=== PATIENT | female | born 1965 | race Caucasian/White ===

== ENCOUNTER 2018-04-13 16:27 | Emergency (ER) | payer MEDICAID ==
[~2018-04-13] VITALS: Ht 154.9 cm; Wt 67.1 kg
--- NOTE | 2018-04-13 16:27 | NUR ---
BROUGHT BACK TO BED #2 AND TRIAGED. REPORT GIVEN TO NEDA
[2018-04-13 16:30] VITALS: BP_SYST 151
--- NOTE | 2018-04-13 16:32 | NUR ---
Pt AAOx4 ambulated into ED c/o SOB/dizziness/headache and chest tightness prior to arrival. Pt reports having increased amount of stress recently. No other injuries/complaints per pt/noted. Will continue to monitor.
--- NOTE | 2018-04-13 16:45 | NUR ---
ER Dr. Geller at bedside examining patient.
[2018-04-13] MEDS ORDERED: LORazepam 2 MG/ML VIAL (FOR ER USE) IVP ONE (17:00)
[2018-04-13] MEDS ORDERED: NITROGLYCERIN 1 INCH (GM) OINT. TP ONE (17:00)
[2018-04-13] MEDS ORDERED: ASPIRIN 81 MG TAB.CHEW PO ONE (17:00)
--- NOTE | 2018-04-13 17:00 | NUR ---
Aspirin, Nitroglycerin TP, Pt refused Ativan. Dr. Geller notified
[2018-04-13 17:11] LABS: BILIRUBIN,URINE NEGATIVE (NEGATIVE); BLOOD, URINE 1+ (NEGATIVE); CLARITY/URINE SL CLOUDY (CLEAR); COLOR,URINE YELLOW (YELLOW); GLUCOSE,URINE NEGATIVE (NEGATIVE); KETONES,URINE NEGATIVE (NEGATIVE); LEUKOCYTE ESTERASE ,URINE NEGATIVE (NEGATIVE); NITRITE, URINE NEGATIVE (NEGATIVE); PROTEIN URINE NEGATIVE (NEGATIVE); UROBILINOGEN,URINE 0.2 (0.2-1.0)
--- NOTE | 2018-04-13 17:16 | NUR ---
Radiology at bedside
[2018-04-13 17:20] LABS: BASOPHILS % (AUTO) 0.4 % (0.0-2.0); EOSINOPHILS # (AUTO) 0.1 K/uL (0.0-0.4); EOSINOPHILS % (AUTO) 0.8 % (0.0-4.0); HEMATOCRIT 40.3 % (36-48); HEMOGLOBIN 14.1 g/dL (12.0-16.0); LYMPHOCYTES # (AUTO) 2.5 K/uL (1.0-5.5); LYMPHOCYTES % (AUTO) 25.6 % (20.5-51.5); MEAN CORPUSCULAR HEMOGLOBIN 30 pg (27-31); MEAN CORPUSCULAR HGB CONC 35 % (32-36); MEAN CORPUSCULAR VOLUME 87 fL (79.0-98.0); MONOCYTES # (AUTO) 0.7 K/uL (0.0-1.0); MONOCYTES % (AUTO) 7.4 % (1.7-9.3); NEUTROPHILS # (AUTO) 6.4 K/uL (1.8-7.7); NEUTROPHILS % (AUTO) 65.8 % (40.0-70.0); PLATELET COUNT (AUTO) 312 K/uL (130-430); RED BLOOD CELL COUNT(AUTO) 4.65 MIL/uL (4.2-6.2); RED CELL DISTRIBUTION WIDTH 11.8 % (9.0-15.0); WHITE BLOOD COUNT (AUTO) 9.7 K/uL (4.8-10.8)
[2018-04-13 17:24] LABS: BACTERIA,URINE FEW /HPF (None Seen); MUCUS,URINE None Seen /LPF (None Seen); RBC,URINE NONE SEEN /HPF (0-3); URINE AMORPHOUS PHOSPHATES 3+ /HPF (None Seen); WBC,URINE 0-3 /HPF (0-3)
[2018-04-13 17:29] LABS: PROTHROMBIN TIME 10.1 SECS (9.5-12.5)
[2018-04-13 17:32] LABS: CALCIUM 8.9 mg/dL (8.4-11.0); CREATININE 0.95 mg/dL (0.55-1.30); POTASSIUM 3.3 mmol/L (3.5-5.1)
[2018-04-13 17:37] LABS: ALBUMIN 3.8 g/dL (3.4-4.8); TOTAL BILIRUBIN 0.1 mg/dL (0.0-1.0)
[2018-04-13 17:45] LABS: FREE T4 (FREE THYROXINE) 1.2 ng/dl (0.8-1.5); THYROID STIMULATING HORMONE 0.42 uIu/mL (0.36-3.74)
[2018-04-13] MEDS ORDERED: LEVO88TA5 PO (17:48)
--- NOTE | 2018-04-13 17:49 | NUR ---
Medication reconciliation completed with information provided by pt. Any prior medication reconciliation on file was reviewed and corrected.
--- NOTE | 2018-04-13 17:49 | NUR ---
Pt states she is full code
[2018-04-13 19:03] VITALS: BP_SYST 130
[2018-04-14] MEDS ORDERED: TUBERCULIN,PURIF.PROT.DERIV. 0.1 ML SYR ID ONE (01:41)
== END 2018-04-13 19:03 | disposition home or self-care (01) ==
LOC: SED 16:27
DX: R07.89 Other chest pain (principal); R42 Dizziness and giddiness; I10 Essential (primary) hypertension
CPT/HCPCS: 36415; 71045; 80053; 81000-TC; 83880; 84439; 84443-TC; 84484; 85025; 85610-TC; 86580; 99285

== ENCOUNTER 2019-07-19 13:36 | Emergency (ER) | payer MEDICAID ==
[~2019-07-19] VITALS: Ht 154.9 cm; Wt 67.1 kg
[~2019-07-19 13:36] MED LIST: LEVO88TA5 PO
[2019-07-19 13:50] VITALS: BP_SYST 157
--- NOTE | 2019-07-19 13:50 | NUR ---
Patient to ER bed 6 to gown for evaluation. Side rails up.
--- NOTE | 2019-07-19 13:55 | NUR ---
pt arrives from home w/ c/o PRADHAN since Monday. PT stated that the PRADHAN became worse 12 hrs ago/ Current pain is 06/06.
--- NOTE | 2019-07-19 14:02 | NUR ---
ER at bedside examining patient.
--- NOTE | 2019-07-19 14:11 | NUR ---
Patient transported to radiology via gurney, accompanied by trade embalmer.
[2019-07-19] MEDS ORDERED: ACETAMINOPHEN 500 MG TABLET PO ONE (14:30)
[2019-07-19] MEDS ORDERED: cloNIDine HCL 0.1 MG TABLET PO ONE (14:30)
[2019-07-19] MEDS ORDERED: LORazepam 2 MG/ML VIAL IVP ONE (14:45)
[2019-07-19] MEDS ORDERED: KETOROLAC TROMETHAMINE 30 MG VIAL IVP ONE (14:45)
[2019-07-19] MEDS ORDERED: METOPROLOL TARTRATE 5 MG/5 ML VIAL IVP ONE (15:30)
[2019-07-19 16:05] VITALS: BP_SYST 126
== END 2019-07-19 16:05 | disposition home or self-care (01) ==
LOC: SED 13:36
DX: I10 Essential (primary) hypertension (principal); R51 Headache; E03.9 Hypothyroidism, unspecified
CPT/HCPCS: 70450; 96374; 96375; 99284; J1885; J2060; J3490